=== PATIENT | female | born 1970 | race African-American/Black ===

== ENCOUNTER 2018-09-22 08:28 | Emergency (ER) | payer OTHER ==
[2018-09-22 08:38] VITALS: BP 121/84; PULSE 81; TEMP 97.7; BMI 27.4
--- NOTE | 2018-09-22 08:55 | PDOC ---
History of Present Illness - General Chief Complaint: Lightheaded Stated Complaint: DIZZINESS/NAUSEA Past History - Suicide/Smoking/Psychosocial Hx Smoking History: Never smoked Information on smoking cessation initiated: No Hx Alcohol Use: No Drug/Substance Use Hx: No
[2018-09-22] MEDS ORDERED: ONDANSETRON 4 MG/2 ML VIAL IVPUSH ONE (09:23)
[2018-09-22] MEDS ORDERED: MECLIZINE HCL 25 MG TABLET (FP) PO ONE ×2 (09:23→11:37)
[2018-09-22] MEDS ORDERED: SODIUM CHLORIDE 1,000 ML IV STA (09:23)
--- NOTE | 2018-09-22 09:30 | PDOC ---
History of Present Illness - General Chief Complaint: Lightheaded Stated Complaint: DIZZINESS/NAUSEA Time Seen by Provider: 09/22/18 09:19 - History of Present Illness Initial Comments: 09/22/18 09:21 Ms. Peres is a 48 yo female w/ pmh of asthma and vertigo who presents for evaluation of dizziness since last night. Patient reports it is positional and similar to her previous vertigo episodes. Currently has nausea however has not vomited. The patient denies chest pain, shortness of breath, and headache. Denies fever, chills, vomit, diarrhea and constipation. Denies dysuria, frequency, urgency and hematuria. Past History - Past Medical History Allergies/Adverse Reactions: Allergies Allergy/AdvReac Type Severity Reaction Status Date / Time No Known Allergies Allergy Verified 09/22/18 09:31 Home Medications: Ambulatory Orders Meclizine HCl [Antivert -] 25 mg PO TID PRN #10 tablet 09/22/18 - Suicide/Smoking/Psychosocial Hx Smoking History: Never smoked Information on smoking cessation initiated: No Hx Alcohol Use: No Drug/Substance Use Hx: No Review of Systems - Review of Systems Comments:: 09/22/18 09:21 GENERAL/CONSTITUTIONAL: No fever or chills. No weakness. HEAD, EYES, EARS, NOSE AND THROAT: No change in vision. No ear pain or discharge. No sore throat. CARDIOVASCULAR: No chest pain or shortness of breath RESPIRATORY: No cough, wheezing, or hemoptysis. GASTROINTESTINAL: +Nausea w/out vomiting, diarrhea or constipation. GENITOURINARY: No dysuria, frequency, or change in urination. MUSCULOSKELETAL: No joint or muscle swelling or pain. No neck or back pain. SKIN: No rash NEUROLOGIC: +Positional dizziness as described. No headache, loss of consciousness, or change in strength/sensation. ENDOCRINE: No increased thirst. No abnormal weight change HEMATOLOGIC/LYMPHATIC: No anemia, easy bleeding, or history of blood clots. ALLERGIC/IMMUNOLOGIC: No hives or skin allergy. Is the patient limited Jamaican proficient: No *Physical Exam - Vital Signs Last Vital Signs Temp Pulse Resp BP Pulse Ox 97.7 F 81 16 121/84 99 09/22/18 08:34 09/22/18 08:34 09/22/18 08:34 09/22/18 08:34 09/22/18 08:34 - Physical Exam Comments: 09/22/18 09:22 GENERAL: Awake, alert, and fully oriented, in no acute distress HEAD: No signs of trauma, normocephalic, atraumatic EYES: PERRLA, EOMI, sclera anicteric, conjunctiva clear ENT: Auricles normal inspection, hearing grossly normal, nares patent, oropharynx clear without exudates. Moist mucosa NECK: Normal ROM, supple, no lymphadenopathy, JVD, or masses LUNGS: No distress, speaks full sentences, clear to auscultation bilaterally HEART: Regular rate and rhythm, normal S1 and S2, no murmurs, rubs or gallops, peripheral pulses normal and equal bilaterally. ABDOMEN: Soft, nontender, normoactive bowel sounds. No guarding, no rebound. No masses EXTREMITIES: Normal inspection, Normal range of motion, no edema. No clubbing or cyanosis. NEUROLOGICAL: Cranial nerves II through XII grossly intact. Normal speech, normal gait, no focal sensorimotor deficits SKIN: Warm, Dry, normal turgor, no rashes or lesions noted. ED Treatment Course - LABORATORY CBC & Chemistry Diagram: 09/22/18 09:45 09/22/18 09:45 Medical Decision Making - Medical Decision Making 09/22/18 10:53 Ms. Chirinos is a 48 yo female w/ known history of vertigo who presents for evaluation of symptoms c/w prior vertigo episodes. Patient exam c/w peripheral vertigo diagnosis. Patient evaluated with labs as below as and given fluids and meclizine for symptomatic relief. Patient reporting relief w/ this course and no concerning findings found on labs. Patient given ENT f/u and Rx for meclizine for home use. No concern for acute process at this time. Discharging to home. Laboratory Results - last 24 hr 09/22/18 09/22/18 09:45 09:45 WBC 8.3 RBC 3.93 Hgb 12.6 Hct 36.6 MCV 93.1 MCH 32.0 MCHC 34.3 RDW 13.5 Plt Count 297 MPV 8.7 Absolute Neuts (auto) 6.4 Neutrophils % 77.2 Lymphocytes % 12.1 Monocytes % 7.8 Eosinophils % 2.1 Basophils % 0.8 Nucleated RBC % 0 Sodium 141 Potassium 4.6 Chloride 108 H Carbon Dioxide 28 Anion Gap 4 L BUN 9.4 Creatinine 0.8 Est GFR (CKD-EPI)AfAm 100.33 Est GFR (CKD-EPI)NonAf 86.57 Random Glucose 86 Calcium 8.6 AST 27 ALT 21 Alkaline Phosphatase 64 Total Protein 6.8 Albumin 3.6 09/22/18 10:54 *DC/Admit/Observation/Transfer Diagnosis at time of Disposition: Dizziness - Discharge Dispostion Disposition: HOME - Prescriptions Prescriptions: Meclizine HCl [Antivert -] 25 mg PO TID PRN #10 tablet PRN Reason: Nausea - Referrals Referrals: Laura Foster MD [Primary Care Provider] - Guillermo Hastings MD [Staff Physician] - - Patient Instructions Printed Discharge Instructions: DI for Vertigo Additional Instructions: You were evaluated today in the ER for your dizziness. We evaluated you with labs and found no concerning findings. Your symptoms improved following fluids and vertigo medication. We have sent a prescription to your pharmacy for further dizziness. Please take all medications as proscribed. We have also provided you with ENT follow-up you may use for further care. Please follow-up later this week. Return to ER if any fevers, chills, pain, uncontrollable dizziness, or other concerning symptoms. - Post Discharge Activity Forms/Work/School Notes: Back to Work
[2018-09-22] MEDS ORDERED: MECLIZINE HCL 25 MG TABLET (FP) ONE ×2 (09:34→11:41)
[2018-09-22] MEDS ORDERED: ONDANSETRON 4 MG/2 ML VIAL ONE (09:34)
[2018-09-22 10:09] LABS: BASO % 0.8 % (0-2.0); EOS % 2.1 % (0-4.5); HEMATOCRIT 36.6 % (32.4-45.2); HEMOGLOBIN 12.6 GM/dL (10.7-15.3); LYMPH % 12.1 % (8-40); MCHC 34.3 g/dl (32.0-36.0); MEAN CELL VOLUME 93.1 fl (80-96); MEAN PLT VOLUME 8.7 fl (7.5-11.1); MONO % 7.8 % (3.8-10.2); NEUT % 77.2 % (42.8-82.8); PLATELET COUNT 297 K/MM3 (134-434); RBC 3.93 M/mm3 (3.60-5.2); RDW 13.5 % (11.6-15.6); WHITE BLOOD COUNT 8.3 K/mm3 (4.0-10.0)
[2018-09-22 10:50] LABS: ALBUMIN 3.6 g/dl (3.4-5.0); BLOOD UREA NITROGEN 9.4 mg/dL (7-18); CALCIUM 8.6 mg/dL (8.5-10.1); CREATININE 0.8 mg/dL (0.55-1.3); POTASSIUM 4.6 mmol/L (3.5-5.1); TOT PROT 6.8 g/dl (6.4-8.2)
--- NOTE | 2018-09-22 10:54 | PDOC ---
Attending Attestation - Resident Resident Name: Keon Belcher - ED Attending Attestation I have performed the following: I have examined & evaluated the patient, The case was reviewed & discussed with the resident, I agree w/resident's findings & plan - HPI HPI: 09/22/18 10:48 48y/o F h/o BPV p/w positional vertigo since last night in the setting of increasing sinus congestion and post-nasal drip. Reports her typical BPV symptoms of transient vertigo with head turning, slight nausea. no headache. no vision change/speech change/focal deficit/neck pain. - Physicial Exam PE: 09/22/18 10:54 Vital signs normal, serum preg pending heart regular, no audible carotid or heart murmur. NEURO: Mental status: The patient is alert and oriented x3. Cranial nerves: Cranial nerves II through XII are intact Motor: The upper extremities are 5 over 5 in all muscle groups. The lower extremities are 5 over 5 in all muscle groups. No pronator drift. Sensation: Sensation is intact to light touch throughout. Cerebellar: Vmbjgb-jlvuur-ktgu is normal in both upper extremities. Heel-knee- gomez is normal in both lower extremities. Reflexes: 2+ and symmetric in the upper and lower extremities. Gait: Normal. Heel and toe walking are normal. Tandem gait is normal. - Medical Decision Making 09/22/18 10:56 48y/o F h/p BPV with exacerbation in the setting of sinus congestion. neuro intact without red flags on history/exam. labs normal ekg normal feels better after meclizine and fluids, ambulating steadily agrees with d/c plan, ent f/u Heart Score/ECG Review #1 ECG reviewed & interpreted by me at: 08:32 General ECG Interpretation: Sinus Rhythm, Normal Rate (67), Normal Intervals ( qtc 433), No acute ischemic changes
[2018-09-22 11:07] LABS: BILIRUBIN,TOTAL 0.2 mg/dL (0.2-1)
--- NOTE | 2018-09-22 14:33 | EKG ---
Test Reason : Blood Pressure : / mmHG Vent. Rate : 067 BPM Atrial Rate : 067 BPM P-R Int : 142 ms QRS Dur : 088 ms QT Int : 410 ms P-R-T Axes : 049 003 030 degrees QTc Int : 433 ms NORMAL SINUS RHYTHM SEPTAL INFARCT , AGE UNDETERMINED ABNORMAL ECG NO PREVIOUS ECGS AVAILABLE Confirmed by Herbert Denny ([id number]) on 09/22/2018 2:32:59 PM Referred By: Confirmed By:Herbert Denny
== END 2018-09-22 12:51 | disposition home or self-care (01) ==
LOC: JER 08:28
DX: H81.10 Benign paroxysmal vertigo, unspecified ear (principal)
CPT/HCPCS: 36415; 80053; 84703; 85025; 93005; 93010; 99283-25; J7030